=== PATIENT | male | born 1950 | race Caucasian/White ===

== ENCOUNTER 2024-08-27 11:43 | Outpatient (RCR) | payer OTHER, SELFPAY ==
--- NOTE | 2024-08-27 12:30 | XR_ITS ---
Examination: ROBERTO, hepatobiliary radioisotope scan Gallbladder ejection fraction study. Date and time of exam: September 06, 2024 1229 hours INDICATIONS: Epigastric pain beginning 4 months ago Technique: 5.8 mCi of 99M Hepatolite administered. Serial imaging then obtained from immediate through 60 minutes. 1.7 mcg selective catheter Kinevac administered for gallbladder ejection fraction study. Findings: Radioisotope activity within the liver is reasonably homogenous. Gallbladder, common bile duct small bowel activity noted Impression: Gallbladder activity Normal gallbladder ejection fraction, 43%
== END 2024-09-01 23:59 | disposition home or self-care (01) ==
LOC: SNUC 11:43
PROVIDERS: Referring Provider Family Medicine; Visit Provider Family Medicine
DX: K82.8 Other specified diseases of gallbladder (principal)
CPT/HCPCS: 78227; A9537; J2805